=== PATIENT | male | born 2000 | race Hispanic/Latino ===

== ENCOUNTER 2023-10-12 11:27 | Emergency (ER) | payer OTHER, SELFPAY ==
[2023-10-12] VITALS (15 sets, daily range): BP systolic 114–139; BP diastolic 55–69; PULSE 66–91; RESP 14–22; TEMP 36.9; O2SAT 91–100; BMI 29.5
--- NOTE | 2023-10-12 11:37 | ED.LOWEXIN ---
HPI - Extremity Injury (Lower) <Aysha Costa PA-C - Last Filed: 10/12/23 12:45> General Chief Complaint: Extremity Injury, Lower Stated Complaint: rolled L ankle at work Time Seen by Provider: 10/12/23 11:36 History of Present Illness HPI Narrative: Patient is a 23-year-old male who presents with left ankle injury. He was jumping off a platform at work, approximately 3 ft, onto what he thought was a flat surface but when he landed, he rolled his left ankle. He was wearing steel-toed work boots. He has not taken any medication or tried any therapy. He has pain that is 7/10 arrival. No history of previous ankle injury. No medical history aside from a fungal infection in the 1st toe of his left foot. Related Data Home Medications Medication Instructions Recorded Confirmed terbinafine HCl 1 % topical cream 1 min topical ##0 08/06/17 (Lamisil AT) Previous Rx's Medication Instructions Recorded penicillin V potassium 500 mg 500 mg PO BID #28 tabs 08/06/17 tablet hydrocodone 5 mg-acetaminophen 325 1 tab PO Q4-6H PRN pain #20 tabs 10/12/23 mg tablet Allergies Allergy/AdvReac Type Severity Reaction Status Date / Time No Known Drug Allergies Allergy Verified 10/12/23 11:40 Review of Systems <Aysha Costa PA-C - Last Filed: 10/12/23 12:45> Review of Systems ROS Unobtainable: All systems reviewed & are unremarkable except as noted in HPI and below Patient History <Aysha Costa PA-C - Last Filed: 10/12/23 12:45> Social History Smoking Status: Unknown if ever smoked Exam <Aysha Costa PA-C - Last Filed: 10/12/23 12:45> Narrative Exam Narrative: GENERAL: 23 year old patient appears stated age. Well-developed patient, in mild distress. NEURO: AOx3. HEAD: Atraumatic. Normocephalic. EYES: Pupils equal round and reactive. Extraocular motions intact. No scleral icterus. No injection or drainage. ENT: Nose without bleeding or purulent drainage. Airway patent. RESPIRATORY: No increased work of breathing EXTREMITIES: Visible deformity, closed. Significant edema on the medial aspect of the left ankle, tender to palpation. Palpable DP pulse, capillary refill 2 seconds, sensation intact. SKIN: No rash or open wound Initial Vital Signs Initial Vital Signs: Vital Signs Temperature 98.4 F 10/12/23 11:28 Pulse Rate 91 H 10/12/23 11:28 Respiratory Rate 16 10/12/23 11:28 Blood Pressure 139/63 10/12/23 11:28 Pulse Oximetry 100 10/12/23 11:28 Oxygen Delivery Method Room Air 10/12/23 11:28 <Jeff Minaya DO - Last Filed: 10/12/23 14:42> Initial Vital Signs Initial Vital Signs: Vital Signs Temperature 98.4 F 10/12/23 11:28 Pulse Rate 91 H 10/12/23 11:28 Respiratory Rate 16 10/12/23 11:28 Blood Pressure 139/63 10/12/23 11:28 Pulse Oximetry 100 10/12/23 11:28 Oxygen Delivery Method Room Air 10/12/23 11:28 Procedures <DO Lawson Adams Last Filed: 10/12/23 14:42> Orthopedic Fracture Reduction Fracture #1: Time Out Performed: Yes Side: left Fracture Reduction Location: fibula Analgesia: procedural sedation Technique: direct manipulation Post Reduction X-rays Demonstrate: acceptable reduction Post-reduction neuro exam: no change Post-reduction vascular exam: no change Splint Applied: Yes Patient Tolerated Procedure: Well and No complications Orthopedic Joint Reduction Joint #1: Time Out Performed: Yes Side: left Joint Reduction Location: ankle Analgesia: procedural sedation Technique used: direct manipulation Post-reduction neuro exam: no change Post-reduction vascular: no change Post Reduction X-Ray Obtained: Yes Post Reduction X-Ray Results: reduced Splint Applied: Yes Patient Tolerated Procedure: Well and No complications Orthopedic Splinting/Casting Injury #1: Side: left Lower Extremity Injury Location: ankle Lower Extremity Immobilizer: posterior splint and stirrup splint Other Orthopedic Equipment: crutches Post splinting neuro exam: no change Post splinting vascular exam: no change Placed by: Provider Procedural Sedation Consent signed: Yes Time out performed: Yes Indication: fracture/dislocation reduction ASA Class: I Mallampati Airway Classification: Class II Preparation: vehicle monitor technician applied, pulse oximeter, capnometry used, supplemental O2 applied, suction/airway equipment at bedside and IV secured IV Propofol dose (mg): 60 Intraservice time/total sedation time (min): 15 ED Sedation Level: Moderate (Concious) Patient Tolerated Procedure: Well Complications: none Course <Aysha Costa PA-C - Last Filed: 10/12/23 12:45> Orders Ordered: ED Orders 10/12/23 11:36 XR ankle LT min 3V Stat 10/12/23 13:41 XR ankle LT min 3V Stat Discontinued Medications Acetaminophen (Acetaminophen 325 Mg Tablet) 975 mg PO NOW ONE Stop: 10/12/23 11:38 Last Admin: 10/12/23 11:50 Dose: 975 mg Documented By: BS Ibuprofen (Ibuprofen 400 Mg Tablet) 800 mg PO NOW ONE Stop: 10/12/23 11:37 Last Admin: 10/12/23 11:49 Dose: 800 mg Documented By: BS Morphine Sulfate (Morphine 2 Mg/Ml Inj) 2 mg IV NOW ONE Stop: 10/12/23 12:24 Last Admin: 10/12/23 12:35 Dose: 2 mg Documented By: BS Ondansetron HCl (Ondansetron 4 Mg/2 Ml Inj) 4 mg IV NOW ONE Stop: 10/12/23 12:26 Last Admin: 10/12/23 12:35 Dose: 4 mg Documented By: BS Propofol (Propofol 200 Mg/20 Ml Vial) 100 mg IV NOW ONE Stop: 10/12/23 13:09 Last Admin: 10/12/23 13:55 Dose: 60 mg Documented By: BS Vital Signs Vital signs: Vital Signs - 8 hr 10/12/23 11:28 10/12/23 12:45 10/12/23 12:48 Temperature 98.4 F Pulse Rate 91 H 85 73 Respiratory Rate 16 22 Blood Pressure 139/63 Pulse Oximetry 100 100 100 Oxygen Delivery Method Room Air Oxygen Flow Rate 10/12/23 12:48 10/12/23 13:00 10/12/23 13:00 Temperature Pulse Rate 66 Respiratory Rate Blood Pressure 124/58 L 121/60 Pulse Oximetry 98 Oxygen Delivery Method Oxygen Flow Rate 10/12/23 13:30 10/12/23 13:30 10/12/23 13:37 Temperature Pulse Rate 71 82 Respiratory Rate Blood Pressure 125/58 L Pulse Oximetry 100 93 Oxygen Delivery Method Oxygen Flow Rate 10/12/23 13:37 10/12/23 13:38 10/12/23 13:38 Temperature Pulse Rate 78 Respiratory Rate Blood Pressure 114/55 L 120/56 L Pulse Oximetry 92 Oxygen Delivery Method Room Air Oxygen Flow Rate 10/12/23 13:40 10/12/23 13:40 10/12/23 13:44 Temperature Pulse Rate 77 Respiratory Rate 14 Blood Pressure 128/61 Pulse Oximetry 91 99 Oxygen Delivery Method Room Air Nasal Cannula Oxygen Flow Rate 2 10/12/23 13:45 10/12/23 13:45 10/12/23 13:50 Temperature Pulse Rate 82 87 Respiratory Rate Blood Pressure 128/60 Pulse Oximetry 99 98 Oxygen Delivery Method Nasal Cannula Room Air Oxygen Flow Rate 2 10/12/23 13:50 10/12/23 13:55 10/12/23 13:55 Temperature Pulse Rate 85 Respiratory Rate Blood Pressure 122/56 L 134/61 Pulse Oximetry 97 Oxygen Delivery Method Room Air Oxygen Flow Rate 10/12/23 14:00 10/12/23 14:00 10/12/23 14:06 Temperature Pulse Rate 90 87 Respiratory Rate Blood Pressure 126/62 Pulse Oximetry 97 96 Oxygen Delivery Method Room Air Oxygen Flow Rate 10/12/23 14:06 Temperature Pulse Rate Respiratory Rate Blood Pressure 118/69 Pulse Oximetry Oxygen Delivery Method Oxygen Flow Rate <Jeff Minaya DO - Last Filed: 10/12/23 14:42> Orders Ordered: ED Orders 10/12/23 11:36 XR ankle LT min 3V Stat 10/12/23 13:41 XR ankle LT min 3V Stat Discontinued Medications Acetaminophen (Acetaminophen 325 Mg Tablet) 975 mg PO NOW ONE Stop: 10/12/23 11:38 Last Admin: 10/12/23 11:50 Dose: 975 mg Documented By: BS Ibuprofen (Ibuprofen 400 Mg Tablet) 800 mg PO NOW ONE Stop: 10/12/23 11:37 Last Admin: 10/12/23 11:49 Dose: 800 mg Documented By: BS Morphine Sulfate (Morphine 2 Mg/Ml Inj) 2 mg IV NOW ONE Stop: 10/12/23 12:24 Last Admin: 10/12/23 12:35 Dose: 2 mg Documented By: BS Ondansetron HCl (Ondansetron 4 Mg/2 Ml Inj) 4 mg IV NOW ONE Stop: 10/12/23 12:26 Last Admin: 10/12/23 12:35 Dose: 4 mg Documented By: [place] Propofol (Propofol 200 Mg/20 Ml Vial) 100 mg IV NOW ONE Stop: 10/12/23 13:09 Last Admin: 10/12/23 13:55 Dose: 60 mg Documented By: [place] Vital Signs Vital signs: Vital Signs - 8 hr 10/12/23 11:28 10/12/23 12:45 10/12/23 12:48 Temperature 98.4 F Pulse Rate 91 H 85 73 Respiratory Rate 16 22 Blood Pressure 139/63 Pulse Oximetry 100 100 100 Oxygen Delivery Method Room Air Oxygen Flow Rate 10/12/23 12:48 10/12/23 13:00 10/12/23 13:00 Temperature Pulse Rate 66 Respiratory Rate Blood Pressure 124/58 L 121/60 Pulse Oximetry 98 Oxygen Delivery Method Oxygen Flow Rate 10/12/23 13:30 10/12/23 13:30 10/12/23 13:37 Temperature Pulse Rate 71 82 Respiratory Rate Blood Pressure 125/58 L Pulse Oximetry 100 93 Oxygen Delivery Method Oxygen Flow Rate 10/12/23 13:37 10/12/23 13:38 10/12/23 13:38 Temperature Pulse Rate 78 Respiratory Rate Blood Pressure 114/55 L 120/56 L Pulse Oximetry 92 Oxygen Delivery Method Room Air Oxygen Flow Rate 10/12/23 13:40 10/12/23 13:40 10/12/23 13:44 Temperature Pulse Rate 77 Respiratory Rate 14 Blood Pressure 128/61 Pulse Oximetry 91 99 Oxygen Delivery Method Room Air Nasal Cannula Oxygen Flow Rate 2 10/12/23 13:45 10/12/23 13:45 10/12/23 13:50 Temperature Pulse Rate 82 87 Respiratory Rate Blood Pressure 128/60 Pulse Oximetry 99 98 Oxygen Delivery Method Nasal Cannula Room Air Oxygen Flow Rate 2 10/12/23 13:50 10/12/23 13:55 10/12/23 13:55 Temperature Pulse Rate 85 Respiratory Rate Blood Pressure 122/56 L 134/61 Pulse Oximetry 97 Oxygen Delivery Method Room Air Oxygen Flow Rate 10/12/23 14:00 10/12/23 14:00 10/12/23 14:06 Temperature Pulse Rate 90 87 Respiratory Rate Blood Pressure 126/62 Pulse Oximetry 97 96 Oxygen Delivery Method Room Air Oxygen Flow Rate 10/12/23 14:06 Temperature Pulse Rate Respiratory Rate Blood Pressure 118/69 Pulse Oximetry Oxygen Delivery Method Oxygen Flow Rate [facility] - Extremity Injury (Lower) <Aysha Costa PA-C - Last Filed: 10/12/23 12:45> Imaging Data Extremity x-ray #1: Radiologist's Impression: PROCEDURE: XR ANKLE LT MIN 3V INDICATIONS: left ankle injury TECHNIQUE: 3 views of the ankle were acquired. COMPARISON: None. FINDINGS: Bones: There is a moderately displaced and angulated comminuted fracture of the distal fibula. There is a moderately displaced fracture of the medial malleolus. Lateral subluxation of the talus is present. Mildly displaced posterior malleolus fracture. Soft tissues: No tibiotalar joint effusion. Achilles tendon appears normal. IMPRESSION: Trimalleolar ankle fracture subluxation. Dictated by: Ana Davila M.D. on 10/12/2023 at 12:09 Approved by: Ana Davila M.D. on 10/12/2023 at 12:10 [facility] Narrative Medical decision making narrative: Multiple etiologies for patient's symptoms considered including, but not limited to: Fracture, dislocation Patient given Tylenol and ibuprofen on arrival to ED, ankle placed on a pillow with ice pack. X-ray shows a displaced trimalleolar left ankle fracture. IV started and patient given 4 mg zofran and 2 mg morphine via IV. Patient transferred from short-stay unit to main ED in preparation for fracture reduction. Dr. Minaya will continue care. <Jeff Minaya DO - Last Filed: 10/12/23 14:42> [facility] Narrative Medical decision making narrative: Multiple etiologies for patient's symptoms considered including, but not limited to: Fracture, dislocation Patient given Tylenol and ibuprofen on arrival to ED, ankle placed on a pillow with ice pack. X-ray shows a displaced trimalleolar left ankle fracture. IV started and patient given 4 mg zofran and 2 mg morphine via IV. Patient transferred from short-stay unit to main ED in preparation for fracture reduction. Dr. Minaya will continue care. Dr minaya: Received turned over. Patient does have a left ankle fracture that is displaced. He was sedated and fracture and dislocation was reduced as described above. Splint was placed. He tolerated procedure well. Patient was informed to follow-up with orthopedic surgery. Discussed return precautions. He expressed understanding and agreement. Discharge Plan Departure Patient Disposition: Home Clinical Impression: Ankle fracture, left Instructions: How to Use Crutches, DI for Ankle Fracture, How to Take Care of Your Splint Activity Restrictions/Additional Instructions: The splint that was placed today needs to be treated like a cast. You need to keep it on and keep it clean and keep it dry. Pain medications were sent to [email or web address] per your request. Do not put pressure on your left leg. You need to use the crutches. You will need follow-up with orthopedic surgery. You can contact them with the number provided below. Return to the emergency department for new symptoms. Prescriptions: New hydrocodone-acetaminophen 5-325 mg tablet 1 tab PO Q4-6H PRN (Reason: pain) Qty: 20 0RF No Action terbinafine HCl [Lamisil AT] 1 % cream 1 min Topical Qty: 0 penicillin V potassium 500 MG tablet 500 mg PO BID Qty: 28 0RF Referrals: Bruna Obrien MD [Physician] - Stand Alone Forms: Patient Portal/API, Work Release Note
[2023-10-12] MEDS: IBUPROFEN 400 MG TABLET 800 MG PO (11:49)
[2023-10-12] MEDS: ACETAMINOPHEN 325 MG TABLET 975 MG PO (11:50)
[2023-10-12] MEDS: ONDANSETRON 4 MG/2 ML INJ IV (12:35)
[2023-10-12] MEDS: MORPHINE 2 MG/ML INJ IV (12:35)
--- NOTE | 2023-10-12 13:41 | DI.RAD.S_ITS ---
PROCEDURE: XR ANKLE LT MIN 3V INDICATIONS: post reduction TECHNIQUE: 3 views of the ankle were acquired. COMPARISON: [facility], CR, XR ANKLE LT MIN 3V, 10/12/2023, 11:49. FINDINGS: Bones: Improved alignment of distal fibular and tibial fractures. Ankle mortise is normally aligned. No suspicious bony lesions. Soft tissues: No tibiotalar joint effusion. Achilles tendon appears normal. IMPRESSION: Improved alignment of distal tibial and fibular fractures. Dictated by: Ana Davila M.D. on 10/12/2023 at 14:02 Approved by: Ana Davila M.D. on 10/12/2023 at 14:06
[2023-10-12] MEDS: propofoL 200 MG/20 ML VIAL 100 MG IV (13:55)
== END 2023-10-12 14:35 | disposition home or self-care (01) ==
PROVIDERS: Emergency Provider Physician Assistant
DX: S82.62XA Displaced fracture of lateral malleolus of left fibula, initial encounter for closed fracture (principal); W17.89XA Other fall from one level to another, initial encounter
CPT/HCPCS: 27818; 73610; 99152; 99284; 99285; J2270; J2405; J2704